=== PATIENT | female | born 1990 ===

== ENCOUNTER 2018-06-20 12:31 | Outpatient (CLI) | payer OTHER ==
[~2018-06-20] VITALS: Ht 152.4 cm; Wt 53.5 kg
== END 2018-06-20 12:45 | disposition home or self-care (01) ==
LOC: OFIC 805 12:31
DX: E04.1 Nontoxic single thyroid nodule (principal); R53.83 Other fatigue

== ENCOUNTER 2018-08-01 09:11 | Outpatient (CLI) | payer OTHER ==
[~2018-08-01] VITALS: Ht 152.4 cm; Wt 54.4 kg
== END 2018-08-01 09:20 | disposition home or self-care (01) ==
LOC: OFIC 805 09:11
DX: E04.1 Nontoxic single thyroid nodule (principal); E05.80 Other thyrotoxicosis without thyrotoxic crisis or storm